=== PATIENT | female | born 1955 | race Caucasian/White ===

== ENCOUNTER 2019-06-12 09:26 | Emergency (ER) | payer MEDICARE, BC ==
[~2019-06-12] VITALS: Ht 157.5 cm; Wt 55.5 kg
[2019-06-12 09:48] VITALS: Ht 157.5 cm; Wt 55.5 kg
[2019-06-12] MEDS ORDERED: MAGNESIUM OXID250 MG (09:50)
[2019-06-12] MEDS ORDERED: VITAMIN B-1250 MCG (09:51)
[2019-06-12] MEDS ORDERED: TUMERIC (09:51)
[2019-06-12] MEDS ORDERED: VITAMIN D3 (09:51)
[2019-06-12] MEDS ORDERED: AZO STANDARD95 MG (09:51)
[2019-06-12] MEDS ORDERED: VALTREX500 MG ×2 (09:51→09:52)
[2019-06-12] MEDS ORDERED: PEPCID COMPLETE (09:52)
[2019-06-12] MEDS ORDERED: CALCIUM (09:52)
[2019-06-12 10:23] LABS: BASOPHILS 0.1 % (0-2); BILIRUBIN NEGATIVE (NEGATIVE); EOSINOPHILS 1.8 % (0-7); GLUCOSE NEGATIVE (NEGATIVE); HEMOGLOBIN 13.8 g/dL (12-16); IMMATURE GRANULOCYTES 0.1 % (0-5); KETONE NEGATIVE (NEGATIVE); LYMPHOCYTES 27.3 % (15-50); MCHC 32.9 g/dL (31.0-37.0); MCV 91.3 fL (80.0-100.0); MEAN PLATELET VOLUME 9.2 fL (7.4-10.4); MONOCYTES 8.3 % (2-11); NEUTROPHILS 62.4 % (40-80); NITRITE NEGATIVE (NEGATIVE); PLATELET COUNT 237 10x3/uL (130-400); SPECIFIC GRAVITY 1.015 (1.005-1.020); UROBILINOGEN NORMAL (NORMAL); WBC 7.3 10x3/uL (4.8-10.8)
[2019-06-12 10:26] LABS: BACTERIA FEW /hpf (NEGATIVE); EPITHELIAL CELLS 0-5 /hpf (0-5); RED CELLS - URINE 0-5 /hpf (0-5); WHITE CELLS - URINE 0-5 /hpf (NEGATIVE)
[2019-06-12 10:30] LABS: CALC OSMOLALITY 285 mosm/kg (275-300); CALCIUM 9.3 mg/dL (8.5-10.1); CARBON DIOXIDE 30.4 mmol/L (21.0-32.0); CHLORIDE - SERUM 104 mmol/L (98-107); CREATININE - SERUM 0.8 mg/dL (0.6-1.3); GLUCOSE 115 mg/dL (74-106); POTASSIUM - SERUM 3.8 mmol/L (3.5-5.1); SODIUM 142 mmol/L (136-145); UREA NITROGEN 19 mg/dL (7-18); eGFR NON AFRICAN AMERICAN 76 mL/min (90-120)
[2019-06-12 10:39] LABS: ALBUMIN 4.1 g/dL (3.4-5.0); ALKALINE PHOSPHATASE 86 U/L (30-120); ALT (SGPT) 27 U/L (10-68); AMYLASE - SERUM 47 U/L (25-115); BILIRUBIN - TOTAL 0.33 mg/dL (0.2-1.3); LIPASE 126 U/L (73-393); PROTEIN - SERUM 7.9 g/dL (6.4-8.2)
[2019-06-12 10:43] LABS: TROPONIN-I < 0.017 ng/mL (0.000-0.060)
[2019-06-12] MEDS ORDERED: PROTONIX40 MG PO (12:20)
[2019-06-12 14:25] VITALS: BP 159/88
== END 2019-06-12 14:26 | disposition home or self-care (01) ==
LOC: D.ER 09:26
PROVIDERS: Family Medicine
DX: R07.89 Other chest pain (principal); K21.9 Gastro-esophageal reflux disease without esophagitis; R10.9 Unspecified abdominal pain